=== PATIENT | male | born 1995 | race Caucasian/White ===

== ENCOUNTER 2021-11-08 17:29 | Emergency (ER) | payer OTHER ==
--- NOTE | 2021-11-08 17:43 | ED Physician Documentation ---
PD HPI CHEST PAIN - Stated complaint Stated Complaint: CHEST PX - History obtained from History obtained from: Patient - History of Present Illness Timing - onset: How many days ago (3-4) Timing - onset during: Light activity Timing - duration: Days (3-4) Timing - details: Gradual onset, Still present Quality: Aching, Dull, Pain Location: Substernal, Left chest Radiation: No: Neck, Back Improved by: No: Rest Worsened by: Inspiration, Position (noted when lying down more but not particularly left versus right side. Mildly worse leaning forward.). No: Eating Associated symptoms: Feeling faint / dizzy, Palpitations (he felt like heart was pounding fast today the past few hours.). No: Shortness of air, Nausea Similar symptoms before: Has not had sx before Recently seen: Clinic (onset and worse 3-4 days ago and seen at [facility] 2 days ago, with ECG done and patient states Dx of pericarditis. Rx with Colchicine bid and Indomethacin 2 tabs tid. has had that for this is 2nd day. Feeling of fast heart rate and increased pain lower chest today.), Other (had 2nd Moderna vaccine a month ago without problems at that time.) Review of Systems Constitutional: denies: Fever, Chills Nose: denies: Rhinorrhea / runny nose, Congestion Throat: denies: Sore throat Cardiac: reports: Chest pain / pressure Respiratory: reports: Dyspnea. denies: Cough Neurologic: reports: Near syncope. denies: Generalized weakness, Syncope PD PAST MEDICAL HISTORY - Past Medical History Cardiovascular: None Respiratory: None Neuro: None Endocrine/Autoimmune: None - Past Surgical History Past Surgical History: No - Present Medications Home Medications: Ambulatory Orders Medication Instructions Recorded Confirmed Calcium Carbonate [Tums (Calcium 200 mg PO Q6HR #30 tablet 11/08/21 Carbonate 500mg)] Colchicine [Colcrys] 0.6 mg ORAL BID 11/08/21 11/08/21 Indomethacin [Indocin] 50 mg ORAL TID 11/08/21 11/08/21 Metoprolol Succinate [Toprol Xl] 25 mg PO DAILY #30 tablet 11/08/21 Omeprazole 40 mg PO DAILY #30 cap 11/08/21 - Allergies Allergies/Adverse Reactions: Allergies Allergy/AdvReac Type Severity Reaction Status Date / Time No Known Drug Allergies Allergy Verified 11/08/21 17:36 - Living Situation Living Situation: reports: With spouse/s.o. Living Arrangement: reports: At home - Social History Does the pt smoke?: No Does the pt drink ETOH?: No Does the pt have substance abuse?: No - Family History Family history: denies: Aortic aneursym, Aortic dissection PD ED PE NORMAL - Vitals Vital signs reviewed: Yes (tachycardic and hypertensive. ) - General General: Alert and oriented X 3, No acute distress, Well developed/nourished - HEENT HEENT: Pharynx benign - Neck Neck: Supple, no meningeal sign, No adenopathy - Cardiac Cardiac: No murmur, No rub. No: RRR (regular but tachycardic.) - Respiratory Respiratory: No respiratory distress, Clear bilaterally - Abdomen Abdomen: Soft, Non tender - Back Back: No CVA TTP - Derm Derm: Normal color, Warm and dry, No rash - Neuro Neuro: Alert and oriented X 3, No motor deficit, Normal speech Results - Vitals Vitals: Vital Signs - 24 hr 11/08/21 11/08/21 17:37 19:05 Temperature 36.5 C 36.4 C L Heart Rate 122 H 94 Respiratory 20 15 Rate Blood Pressure 172/94 H 134/96 H O2 Saturation 100 98 Oxygen O2 Source Room air - EKG (time done) 17:37 Rate: Rate (enter#) (111) Rhythm: Sinus tachycardia [place]: Normal Intervals: Normal [place] QRS: Normal Ischemia: Normal ST segments, Other (borderline repolarization). No: ST elevation c/w ischemia, ST depression - Labs Labs: Laboratory Tests 11/08/21 11/08/21 11/08/21 18:32 18:32 18:32 WBC 9.9 RBC 6.11 H Hgb 17.3 Hct 50.9 MCV 83.3 MCH 28.3 MCHC 34.0 RDW 11.9 L Plt Count 244 MPV 9.8 Neut # (Auto) 7.5 H Lymph # (Auto) 1.8 [place] # (Auto) 0.5 Eos # (Auto) 0.1 Baso # (Auto) 0.1 Absolute Nucleated RBC 0.00 Nucleated RBC % 0.0 Sodium 137 Potassium 3.7 Chloride 100 L Carbon Dioxide 26 Anion Gap 11.0 BUN 13 Creatinine 1.0 Estimated GFR (MDRD) 93 Glucose 109 H Calcium 9.5 Total Bilirubin 0.6 AST 31 ALT 65 H Alkaline Phosphatase 83 Troponin I High Sens 2.4 C-Reactive Protein 1.1 H B-Natriuretic Peptide Total Protein 8.2 Albumin 5.3 Globulin 2.9 Albumin/Globulin Ratio 1.8 Lipase 25 11/08/21 18:32 WBC RBC Hgb Hct MCV MCH MCHC RDW Plt Count MPV Neut # (Auto) Lymph # (Auto) [place] # (Auto) Eos # (Auto) Baso # (Auto) Absolute Nucleated RBC Nucleated RBC % Sodium Potassium Chloride Carbon Dioxide Anion Gap BUN Creatinine Estimated GFR (MDRD) Glucose Calcium Total Bilirubin AST ALT Alkaline Phosphatase Troponin I High Sens C-Reactive Protein B-Natriuretic Peptide 14 Total Protein Albumin Globulin Albumin/Globulin Ratio Lipase - Rads (name of study) chest xray Radiology: Prelim report reviewed (no acute process), See rad report PD MEDICAL DECISION MAKING - ED course Complexity details: reviewed results (bedside U/S by me showed normal heart s ize, brisk symmetric contractions, and no pericardial effusion. ), considered differential (can check CXR and labs. If presume pericarditis, then can add Metoprolol for symptoms (HR and BP), continue Indocin and colchicine, and could add a dose of Decadron. COncern for GI upset with meds, and he did get some better with GI cocktail, so add Famotidine. Check trop to ensure not carditis.), d/w patient Departure - Departure Disposition: 01 Home, Self Care Clinical Impression: Pericarditis Condition: Fair Instructions: ED Chest Pain Pericarditis Prescriptions: Calcium Carbonate [Tums (Calcium Carbonate 500mg)] 200 mg PO Q6HR #30 tablet Omeprazole 40 mg PO DAILY #30 cap Metoprolol Succinate [Toprol Xl] 25 mg PO DAILY #30 tablet Comments: Thank you for allowing us to care for you today at [facility]. . All the test performed in the emergency department today were very reassuring. I like you to continue to take your previously prescribed indomethacin and colchicine. I will also be discharging of some medication to take for pain control and indigestion. Please continue to follow-up carefully with your outpatient team. If it anytime you develop any new or worsening symptoms please return to the emergency department immediately for reevaluation. Discharge Date/Time: 11/08/21 20:10
[2021-11-08] MEDS ORDERED: DEXAMETHASONE 10 MG/ML VIAL IVP STA (18:22)
[2021-11-08] MEDS ORDERED: METOPROLOL 5 MG/5 ML VIAL IVP STA (18:22)
[2021-11-08] MEDS ORDERED: SODIUM CHLORIDE 0.9% 1,000 ML IV STA (18:22)
[2021-11-08] MEDS ORDERED: MAG HYDROX/AL HYDROX/SIMETH 30 ML UDC PO STA (18:24)
[2021-11-08] MEDS ORDERED: LIDOCAINE VISCOUS 2% 15 ML UDC MM STA (18:24)
[2021-11-08 18:39] LABS: BASOPHILS # (AUTO) 0.1 10^3/uL (0.0-0.1); BASOPHILS % (AUTO) 0.5 %; EOSINOPHILS # (AUTO) 0.1 10^3/uL (0.0-0.7); EOSINOPHILS % (AUTO) 0.8 %; HCT - HEMATOCRIT 50.9 % (42.0-52.0); HGB - HEMOGLOBIN 17.3 g/dL (14.0-18.0); LYMPHOCYTES # (AUTO) 1.8 10^3/uL (1.5-3.5); LYMPHOCYTES % (AUTO) 17.8 %; MEAN CORPUSCULAR HEMOGLOBIN 28.3 pg (27.0-31.0); MEAN CORPUSCULAR VOLUME 83.3 fL (80.0-94.0); MEAN PLATELET VOLUME 9.8 fL (7.4-11.4); MONOCYTES # (AUTO) 0.5 10^3/uL (0.0-1.0); MONOCYTES % (AUTO) 4.7 %; NEUTROPHILS # (AUTO) 7.5 10^3/uL (1.5-6.6); NEUTROPHILS % (AUTO) 75.9 %; PLT - PLATELET COUNT 244 10^3/uL (130-450); RED BLOOD COUNT 6.11 10^6/uL (4.70-6.10); RED CELL DISTRIBUTION WIDTH 11.9 % (12.0-15.0); WHITE BLOOD COUNT 9.9 x10^3/uL (4.8-10.8)
--- NOTE | 2021-11-08 18:51 | XRAY Report ---
PROCEDURE: Chest 1 View X-Ray INDICATIONS: Chest Pain TECHNIQUE: One view of the chest was acquired. COMPARISON: None FINDINGS: Surgical changes and devices: None. Lungs and pleura: No pleural effusions or pneumothorax. Lungs are clear. Mediastinum: Mediastinal contours appear normal. Heart size is normal. Bones and chest wall: No suspicious bony lesions. Overlying soft tissues appear unremarkable. IMPRESSION: No acute cardiopulmonary disease process. Reviewed by: Margoth Harrell MD, PhD on 11/08/2021 6:49 PM PST Approved by: Margoth Harrell MD, PhD on 11/08/2021 6:49 PM PST Station ID: [id number]
[2021-11-08 18:59] LABS: ALBUMIN 5.3 g/dL (3.2-5.5); ALBUMIN/GLOBULIN RATIO 1.8 (1.0-2.2); BILIRUBIN,TOTAL 0.6 mg/dL (0.2-1.0); CALCIUM 9.5 mg/dL (8.5-10.3); CRP - C-REACTIVE PROTEIN 1.1 mg/dL (0-1.0); POTASSIUM 3.7 mmol/L (3.5-5.0); TOTAL PROTEIN 8.2 g/dL (6.7-8.2)
--- NOTE | 2021-11-08 19:15 | ED Physician Documentation ---
ED Addendum - Addendum Addendum: Patient received as signout from off going physician, please see their documentation for further detail. Patient evaluated independently at bedside. Reported feeling significantly better. All labs and imaging were reviewed directly with the patient including his negative troponin, mild elevation in C- reactive protein, is otherwise reassuring labs, the improvement in his vital signs and his nonacute chest x-ray. Had a long and detailed discussion with the patient about the nature of pericarditis as well as the natural course of this illness. Instructed patient in use of the medications that I will discharge him with including the low-dose beta-samaria, omeprazole to be taken daily, and calcium carbonate antiacids to be used as needed. He verbalized understanding of these things. Additionally I went over return precautions with him in detail including return to the emergency department instructions for any worsening pain, fever, shortness of breath or other concerning symptoms. At this time will discharge for follow-up with primary care. Otherwise clear return pre cautions and follow-up instructions given prior to discharge. 11/08/21 20:06
[2021-11-08 20:25] VITALS: BP 134/96
== END 2021-11-08 20:10 | disposition home or self-care (01) ==
LOC: ED 17:29
DX: I31.9 Disease of pericardium, unspecified (principal)
CPT/HCPCS: 36415; 71045; 80053; 83690; 83880; 84484; 85025; 86140; 93005; 96374; 96375; 99284; A9270

== ENCOUNTER 2021-12-06 15:50 | Emergency (ER) | payer OTHER ==
--- NOTE | 2021-12-06 16:19 | ED Physician Documentation ---
PD HPI CHEST PAIN - Stated complaint Stated Complaint: CHEST TIGHTNESS - Chief complaint Chief Complaint: Cardiac - History obtained from History obtained from: Patient - Additional information Additional information: 25yo with hx of pericarditis 1 month ago. Chest discomfort since last night,12/01, central, nonradiating. "Tightness." Better with rest, worse with movement. No sick contacts. On colchicine and metoprolol. Fhx mom with SVT and sister too. Started at rest last night, does feel like prior episode of pericarditis. Review of Systems Ten Systems: 10 systems reviewed and negative PD PAST MEDICAL HISTORY - Past Medical History Past Medical History: Yes Cardiovascular: Other Respiratory: Asthma Neuro: None Endocrine/Autoimmune: None GI: None : None HEENT: None Psych: Anxiety Musculoskeletal: None Derm: None - Past Surgical History Past Surgical History: No - Present Medications Home Medications: Ambulatory Orders Medication Instructions Recorded Confirmed Calcium Carbonate [Tums (Calcium 200 mg PO Q6HR #30 tablet 11/08/21 12/06/21 Carbonate 500mg)] Colchicine [Colcrys] 0.6 mg ORAL BID 11/08/21 12/06/21 Indomethacin [Indocin] 50 mg ORAL TID 11/08/21 12/06/21 Metoprolol Succinate [Toprol Xl] 25 mg PO DAILY #30 tablet 11/08/21 12/06/21 - Allergies Allergies/Adverse Reactions: Allergies Allergy/AdvReac Type Severity Reaction Status Date / Time No Known Drug Allergies Allergy Verified 12/06/21 16:02 - Social History Does the pt smoke?: No Smoking Status: Never smoker Does the pt drink ETOH?: No Does the pt have substance abuse?: No - Immunizations Immunizations are current?: Yes PD ED PE NORMAL - Vitals Vital signs reviewed: Yes - General General: Alert and oriented X 3, No acute distress - HEENT HEENT: PERRL, EOMI - Neck Neck: Supple, no meningeal sign, No bony TTP - Cardiac Cardiac: Other (Tachycardic but regular without murmur, bedside ultrasound demonstrates visibly good EF with no pericardial effusion.) - Respiratory Respiratory: No respiratory distress, Clear bilaterally - Abdomen Abdomen: Non tender - Derm Derm: Normal color, Warm and dry - Extremities Extremities: No edema, No calf tenderness / cord - Neuro Neuro: Alert and oriented X 3, Normal speech Results - Vitals Vitals: Vital Signs - 24 hr 01/15/22 01/15/22 01/15/22 16:02 16:17 17:20 Temperature 36.8 C Heart Rate 120 H 125 H 105 H Respiratory 18 22 18 Rate Blood Pressure 165/98 H 142/93 H 143/89 H O2 Saturation 99 98 96 Oxygen O2 Source Room air - EKG (time done) 1556 Rate: Rate (enter#) (120) Rhythm: Sinus tachycardia [place]: Normal Intervals: Normal [place], Prolonged QT QRS: Normal Ischemia: Non specific changes Compare to prior EKG: Changed from prior EKG (increased TWI inferior, O/W not much change.) Computer interpretation: Agree with computer - Labs Labs: Laboratory Tests 12/06/21 12/06/21 12/06/21 16:31 16:31 16:31 WBC 8.3 RBC 5.72 Hgb 16.2 Hct 47.4 MCV 82.9 MCH 28.3 MCHC 34.2 RDW 11.9 L Plt Count 217 MPV 9.7 Neut # (Auto) 6.0 Lymph # (Auto) 1.5 [place] # (Auto) 0.5 Eos # (Auto) 0.3 Baso # (Auto) 0.0 Absolute Nucleated RBC 0.00 Nucleated RBC % 0.0 D-Dimer 246.5 Sodium 138 Potassium 4.0 Chloride 100 L Carbon Dioxide 28 Anion Gap 10.0 BUN 19 Creatinine 1.0 Estimated GFR (MDRD) 93 Glucose 122 H Calcium 9.5 Magnesium 2.4 Troponin I High Sens 12/06/21 16:31 WBC RBC Hgb Hct MCV MCH MCHC RDW Plt Count MPV Neut # (Auto) Lymph # (Auto) [place] # (Auto) Eos # (Auto) Baso # (Auto) Absolute Nucleated RBC Nucleated RBC % D-Dimer Sodium Potassium Chloride Carbon Dioxide Anion Gap BUN Creatinine Estimated GFR (MDRD) Glucose Calcium Magnesium Troponin I High Sens 3.3 PD MEDICAL DECISION MAKING - ED course ED course: He is tachycardic so PE is considered even though his symptoms are not really consistent with that, but D-dimer was negative. Review of prior visit shows that he was tachycardic on prior visit as well. He was worried about myocarditis but his troponin is negative and bedside very limited echocardiogram was showing good EF visibly and no evidence of pericardial effusion. Departure - Departure Disposition: 01 Home, Self Care Clinical Impression: Chest pain Qualifiers: Chest pain type: chest pain on breathing Qualified Code(s): R07.1 - Chest pain on breathing Condition: Good Record reviewed to determine appropriate education?: Yes Instructions: ED Chest Pain Atypical Unkn Cause Comments: No evidence of serious disease including myocarditis, pulmonary embolism or other serious cause of chest pain. Could be persistent pain from pericarditis versus your physician for further evaluation and treatment. Return for new or worsening symptoms. Discharge Date/Time: 12/06/21 17:36
[2021-12-06 16:39] LABS: BASOPHILS % (AUTO) 0.5 %; EOSINOPHILS # (AUTO) 0.3 10^3/uL (0.0-0.7); EOSINOPHILS % (AUTO) 3.1 %; HCT - HEMATOCRIT 47.4 % (42.0-52.0); HGB - HEMOGLOBIN 16.2 g/dL (14.0-18.0); LYMPHOCYTES # (AUTO) 1.5 10^3/uL (1.5-3.5); LYMPHOCYTES % (AUTO) 18.3 %; MEAN CORPUSCULAR HEMOGLOBIN 28.3 pg (27.0-31.0); MEAN CORPUSCULAR HGB CONC 34.2 g/dL (32.0-36.0); MEAN CORPUSCULAR VOLUME 82.9 fL (80.0-94.0); MEAN PLATELET VOLUME 9.7 fL (7.4-11.4); MONOCYTES # (AUTO) 0.5 10^3/uL (0.0-1.0); MONOCYTES % (AUTO) 5.8 %; NEUTROPHILS % (AUTO) 72.1 %; PLT - PLATELET COUNT 217 10^3/uL (130-450); RED BLOOD COUNT 5.72 10^6/uL (4.70-6.10); RED CELL DISTRIBUTION WIDTH 11.9 % (12.0-15.0); WHITE BLOOD COUNT 8.3 x10^3/uL (4.8-10.8)
[2021-12-06 16:48] LABS: CALCIUM 9.5 mg/dL (8.5-10.3); MAGNESIUM 2.4 mg/dL (1.7-2.8)
[2021-12-06 17:21] VITALS: BP 143/89
--- NOTE | 2021-12-06 17:26 | XRAY Report ---
PROCEDURE: Chest 1 View X-Ray INDICATIONS: chest pain TECHNIQUE: One view of the chest was acquired. COMPARISON: 11/08/2021 FINDINGS: Surgical changes and devices: None. Lungs and pleura: No pleural effusions or pneumothorax. Lungs are clear. Mediastinum: Mediastinal contours appear normal. Heart size is normal. Bones and chest wall: No suspicious bony lesions. Overlying soft tissues appear unremarkable. IMPRESSION: Normal portable chest. Reviewed by: Shahid Beyer MD on 12/06/2021 4:25 PM [facility] Approved by: Shahid Beyer MD on 12/06/2021 4:25 PM [facility] Station ID: [id number]
== END 2021-12-06 17:36 | disposition home or self-care (01) ==
LOC: ED 15:50
DX: R07.1 Chest pain on breathing (principal); R00.0 Tachycardia, unspecified; I45.81 Long QT syndrome; Z86.79 Personal history of other diseases of the circulatory system; Z82.49 Family history of ischemic heart disease and other diseases of the circulatory system
CPT/HCPCS: 36415; 80048; 83735; 84484; 85025; 85379; 93005; 99281; 99284

== ENCOUNTER 2022-05-14 08:00 | Outpatient (CLI) | payer OTHER | END 2022-05-14 23:59 | disposition home or self-care (01) | LOC: LAB 08:00 | PROVIDERS: ATTEND Registered Nurse | DX: J02.9 Acute pharyngitis, unspecified (principal) | CPT/HCPCS: 87070 ==

== ENCOUNTER 2022-07-24 14:04 | Emergency (ER) | payer OTHER ==
--- OUTSIDE RECORDS SUMMARY | 2022-07-24 14:23 | EXTERNAL MEDICAL SUMMARY RPT | Continuity of Care Document ---
:1995 Author Organization [facility] Address [address] [place] [address] Phone Allergies No information. Encounters No information. Functional Status No information. Immunizations No information. Medications date description facility +0000 amoxicillin [facility] [place] [id number] prednisone [facility] [place] [id number]+0000 amoxicillin [facility] [place] [id number]+0000 prednisone [facility] [place] [id number]+0000 metoprolol tartrate [facility] [place] [id number]+0000 metoprolol tartrate [facility] [place] Problems No information. Procedures date description facility +0000 Visit Code Hold [facility] [place] [id number]+0000 POC STREP TEST [facility] [place] Results/Labs No information. Social History No information. Vital Signs date measurement value units +0000 BMI BMI 24.36 kg/m2 [id number]+0000 BP_diastolic BP_diastolic 82 mm[H g] [id number]+0000 BP_systolic BP_systolic 140 mm[Hg] 49931564412235+0000 heart_rate heart_rate 122 /min [id number]+0000 height_metric height_metric 170.18 cm [id number]+0000 height_standard height_standard 67 in [id number]+0000 respiration_rate respiration_rate 15 /min [id number]+0000 temperature_metric temperature_metric 36.78 C [id number]+0000 temperature_standard temperature_standard 9 8.2 F [id number]+0000 weight_metric weight_metric 70.31 kg [id number]+0000 weight_standard weight_standard 155 lb
[2022-07-24 14:58] LABS: BASOPHILS % (AUTO) 0.6 %; EOSINOPHILS # (AUTO) 0.1 10^3/uL (0.0-0.7); EOSINOPHILS % (AUTO) 0.8 %; HCT - HEMATOCRIT 48.6 % (42.0-52.0); HGB - HEMOGLOBIN 16.3 g/dL (14.0-18.0); LYMPHOCYTES # (AUTO) 1.8 10^3/uL (1.5-3.5); LYMPHOCYTES % (AUTO) 24.8 %; MEAN CORPUSCULAR HEMOGLOBIN 28.1 pg (27.0-31.0); MEAN CORPUSCULAR HGB CONC 33.5 g/dL (32.0-36.0); MEAN CORPUSCULAR VOLUME 83.6 fL (80.0-94.0); MEAN PLATELET VOLUME 10.1 fL (7.4-11.4); MONOCYTES # (AUTO) 0.4 10^3/uL (0.0-1.0); MONOCYTES % (AUTO) 6.1 %; NEUTROPHILS # (AUTO) 4.9 10^3/uL (1.5-6.6); NEUTROPHILS % (AUTO) 67.4 %; PLT - PLATELET COUNT 226 10^3/uL (130-450); RED BLOOD COUNT 5.81 10^6/uL (4.70-6.10); RED CELL DISTRIBUTION WIDTH 12.4 % (12.0-15.0); WHITE BLOOD COUNT 7.2 x10^3/uL (4.8-10.8)
[2022-07-24 15:11] LABS: ALBUMIN/GLOBULIN RATIO 1.8 (1.0-2.2); BILIRUBIN,TOTAL 0.9 mg/dL (0.2-1.0); CALCIUM 9.3 mg/dL (8.5-10.3); CREATININE 1.1 mg/dL (0.6-1.2); POTASSIUM 3.5 mmol/L (3.5-5.0); TOTAL PROTEIN 7.8 g/dL (6.7-8.2)
--- NOTE | 2022-07-24 16:04 | CT Report ---
PROCEDURE: ANGIO CHEST W/WO INDICATIONS: chest pain, dyspnea, tachycardia CONTRAST: IV CONTRAST: Optiray 320 ml: 80 PO CONTRAST: *NO PO CONTRAST TECHNIQUE: After the administration of intravenous contrast, 2 mm axial images were acquired from the pulmonary apices to the posterior costophrenic angles during the arterial phase. In addition, 1 mm lung kernel and 5 mm soft tissue kernel reconstructions were performed. 3-dimensional coronal oblique maximum int ensity projection (MIP) reformats, 8 mm axial MIP, and 5 mm coronal and sagittal MPR reformats were t hen performed through the thorax. For radiation dose reduction, the following was used: automated exp osure control, adjustment of mA and/or kV according to patient size. COMPARISON: None. FINDINGS: Image quality: Diagnostic. Pulmonary arteries: Pulmonary arteries are normal in size, and demonstrate no intraluminal filling d efects to suggest central pulmonary embolism. Lungs and pleura: Bibasilar atelectasis. Lungs are otherwise clear. No acute airspace disease. No se ptal thickening or nodularity. No pleural effusions or pneumothorax. Central and peripheral airways are patent. Mediastinum: Heart size is normal, without pericardial effusion. No mediastinal or hilar adenopathy . Thoracic aorta is normal in caliber and enhancement. Esophagus is normal in caliber, without hiat al hernia. Bones and chest wall: No suspicious bony lesions. Ribs and thoracic spine appear intact throughout. No axillary or supraclavicular adenopathy. The thyroid is normal in size and there are no incident al findings. Abdomen: Visualized upper abdominal solid organs appear normal in the early arterial phase of enhanc ement. IMPRESSION: No acute pulmonary emboli identified. No acute cardiopulmonary abnormality seen. No focal airspace di sease. CLINICAL RECOMMENDATION STATEMENTS: In patients <35 years with an ITN detected on CT, MRI, or extrathyroidal ultrasound, the Committee re commends further evaluation with dedicated thyroid ultrasound if the nodule is "e1 cm and has no susp icious imaging features, and if the patient has normal life expectancy. In patients "e35 years with an ITN detected on CT, MRI, or extrathyroidal ultrasound, the Committee r ecommends further evaluation with dedicated thyroid ultrasound if the nodule is "e1.5 cm and has no s uspicious imaging features, and if the patient has normal life expectancy. (ACR, 2014) Reviewed by: Jose Cleveland MD on 07/24/2022 4:03 PM PDT Approved by: Jose Cleveland MD on 07/24/2022 4:03 PM PDT Station ID: [id number]
--- NOTE | 2022-07-24 16:07 | ED Physician Documentation ---
History of Present Illness - Stated complaint Stated Complaint: CHEST PAIN - Chief complaint Chief Complaint: Cardiac - History obtained from History obtained from: Patient - History of Present Illness Pain level max: 4 Pain level now: 0 - Additonal information Additional information: Patient is a 26-year-old male who presents to the emergency department stating that he has had intermittent chest pain and palpitations for several weeks. Worsening over the past few days. He states that if he is exerting himself heavily, he has an elevated heart rate into the 180s. He states occasionally his heart rate will go higher with minimal exertion as well. He states he had pericarditis about 9 months ago. Currently asymptomatic Patient states occasionally he feels like he has dyspnea as well. He states occasionally feels sharp pain when taking a deep breath. No recent travel. No leg swelling. No history of DVT Review of Systems Constitutional: denies: Fever, Chills Ears: denies: Ear pain Nose: denies: Rhinorrhea / runny nose, Congestion : denies: Dysuria Skin: denies: Rash Musculoskeletal: denies: Neck pain, Back pain Neurologic: denies: Headache PD PAST MEDICAL HISTORY - Past Medical History Cardiovascular: Other Respiratory: Asthma Neuro: None Endocrine/Autoimmune: None GI: None : None HEENT: None Psych: Anxiety Musculoskeletal: None Derm: None - Past Surgical History Past Surgical History: No - Present Medications Home Medications: Ambulatory Orders Medication Instructions Recorded Confirmed Calcium Carbonate [Tums (Calcium 200 mg PO Q6HR #30 tablet 11/08/21 07/24/22 Carbonate 500mg)] Metoprolol Succinate [Toprol Xl] 25 mg PO DAILY #30 tablet 11/08/21 07/24/22 - Allergies Allergies/Adverse Reactions: Allergies Allergy/AdvReac Type Severity Reaction Status Date / Time No Known Drug Allergies Allergy Verified 07/24/22 14:17 - Social History Does the pt smoke?: No Smoking Status: Never smoker Does the pt drink ETOH?: No Does the pt have substance abuse?: No - Immunizations Immunizations are current?: Yes PD ED PE NORMAL - Vitals Vital signs reviewed: Yes - General General: Alert and oriented X 3, No acute distress - HEENT HEENT: Moist mucous membranes - Neck Neck: Supple, no meningeal sign - Cardiac Cardiac: RRR, No murmur, No gallop, No rub, Strong equal pulses - Respiratory Respiratory: No respiratory distress, Clear bilaterally - Abdomen Abdomen: Soft, Non tender, Non distended - Derm Derm: Warm and dry - Extremities Extremities: No edema, No calf tenderness / cord - Neuro Neuro: Alert and oriented X 3, 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4 Plt Count 226 MPV 10.1 Neut # (Auto) 4.9 Lymph # (Auto) 1.8 [place] # (Auto) 0.4 Eos # (Auto) 0.1 Baso # (Auto) 0.0 Absolute Nucleated RBC 0.00 Nucleated RBC % 0.0 Sodium 135 Potassium 3.5 Chloride 100 L Carbon Dioxide 26 Anion Gap 9.0 BUN 12 Creatinine 1.1 Estimated GFR (MDRD) 82 L Glucose 96 Calcium 9.3 Total Bilirubin 0.9 AST 25 ALT 39 Alkaline Phosphatase 70 Troponin I High Sens < 2.3 L Total Protein 7.8 Albumin 5.0 Globulin 2.8 Albumin/Globulin Ratio 1.8 Lipase 31 - Rads (name of study) CT pulmonary angiogram Radiology: Final report received, EMP read contemporaneously, See rad report (No acute abnormality) PD MEDICAL DECISION MAKING - ED course Complexity details: reviewed results, re-evaluated patient, considered differential, d/w patient ED course: 26-year-old male with chest pain and palpitations for the past several weeks. Unclear etiology. No significant abnormalities here. States had pericarditis about 9 months ago. No evidence of pericardial effusion on CT scan. No evidence of PE. No significant lab abnormalities. We will have him follow-up with his doctor for further care. No arrhythmias on telemetry. Patient counseled regarding signs and symptoms for which I believe and urgent re- evaluation would be necessary. Patient with good understanding of and agreement to plan and is comfortable going home at this time This document was made in part using voice recognition software. While efforts are made to proofread this document, sound alike and grammatical errors may occur. Departure - Departure Disposition: 01 Home, Self Care Clinical Impression: Palpitations Chest pain Qualifiers: Chest pain type: unspecified Qualified Code(s): R07.9 - Chest pain, unspecified Condition: Good Instructions: ED Chest Pain Atypical Unkn Cause, ED Palpitations Follow-Up: your,doctor in 1 week [Other] Comments: Your testing does not show any acute abnormalities today. Your laboratory testing, EKG and CT angiogram of the chest do not show any acute abnormalities. 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 Please return if you worsen. Discharge Date/Time: 07/24/22 16:28
[2022-07-24 16:28] VITALS: BP 142/90
== END 2022-07-24 16:28 | disposition home or self-care (01) ==
LOC: ED 14:04
DX: R07.9 Chest pain, unspecified (principal); R00.2 Palpitations
CPT/HCPCS: 36415; 71275; 80053; 83690; 84484; 85025; 93005; 99284; Q9967

== ENCOUNTER 2022-09-30 11:13 | Emergency (ER) | payer OTHER ==
[2022-09-30 11:49] LABS: BASOPHILS % (AUTO) 0.3 %; EOSINOPHILS # (AUTO) 0.1 10^3/uL (0.0-0.7); EOSINOPHILS % (AUTO) 0.9 %; HCT - HEMATOCRIT 51.3 % (42.0-52.0); LYMPHOCYTES # (AUTO) 1.8 10^3/uL (1.5-3.5); LYMPHOCYTES % (AUTO) 18.8 %; MEAN CORPUSCULAR HEMOGLOBIN 27.8 pg (27.0-31.0); MEAN CORPUSCULAR HGB CONC 33.1 g/dL (32.0-36.0); MEAN CORPUSCULAR VOLUME 83.8 fL (80.0-94.0); MEAN PLATELET VOLUME 9.7 fL (7.4-11.4); MONOCYTES # (AUTO) 0.6 10^3/uL (0.0-1.0); MONOCYTES % (AUTO) 5.8 %; NEUTROPHILS # (AUTO) 7.2 10^3/uL (1.5-6.6); NEUTROPHILS % (AUTO) 73.8 %; PLT - PLATELET COUNT 241 10^3/uL (130-450); RED BLOOD COUNT 6.12 10^6/uL (4.70-6.10); RED CELL DISTRIBUTION WIDTH 12.4 % (12.0-15.0); WHITE BLOOD COUNT 9.7 x10^3/uL (4.8-10.8)
[2022-09-30 12:08] LABS: ALBUMIN/GLOBULIN RATIO 1.7 (1.0-2.2); BILIRUBIN,TOTAL 1.1 mg/dL (0.2-1.0); CALCIUM 9.5 mg/dL (8.5-10.3); POTASSIUM 3.7 mmol/L (3.5-5.0)
--- NOTE | 2022-09-30 14:20 | ED Physician Documentation ---
History of Present Illness - Stated complaint Stated Complaint: LIGHTHEADED - Chief complaint Chief Complaint: Neuro - Additonal information Additional information: 26-year-old male presents emergency department for evaluation of feeling lig htheaded and dizzy. He states that for the last 3 weeks he has been in a fog and just feels out of it however this morning he felt like he was going to pass out. He denies a sensation of tunnel vision. No chest pain or shortness of air. He has had no recent falls or trauma. No cough cold or fevers. He does have a history of pericarditis that was diagnosed last year. He has been weaning off of Metroprolol. He is a daily vapor/tobacco user. Rare alcohol use. Denies cannabis. No recent travel, surgery or immobilizations. No unilateral leg swelling. No history of DVT or cancer. Review of Systems Constitutional: denies: Fever, Chills Eyes: reports: Reviewed and negative Throat: reports: Reviewed and negative Cardiac: denies: Chest pain / pressure, Palpitations, Pedal edema Respiratory: denies: Dyspnea, Cough GI: reports: Reviewed and negative Skin: reports: Reviewed and negative Musculoskeletal: reports: Reviewed and negative Neurologic: reports: Near syncope. denies: Syncope, Seizure, Confused, Headache, Head injury PD PAST MEDICAL HISTORY - Past Medical History Cardiovascular: Other Respiratory: Asthma Neuro: None Endocrine/Autoimmune: None GI: None : None HEENT: None Psych: Anxiety Musculoskeletal: None Derm: None - Past Surgical History Past Surgical History: No - Present Medications Home Medications: Ambulatory Orders Medication Instructions Recorded Confirmed Metoprolol Succinate [Toprol Xl] 25 mg PO DAILY #30 tablet 11/08/21 09/30/22 - Allergies Allergies/Adverse Reactions: Allergies Allergy/AdvReac Type Severity Reaction Status Date / Time No Known Drug Allergies Allergy Verified 09/30/22 11:33 - Social History Does the pt smoke?: No Smoking Status: Never smoker Does the pt drink ETOH?: No Does the pt have substance abuse?: No - Immunizations Immunizations are current?: Yes PD ED PE NORMAL - General General: Alert and oriented X 3, No acute distress - HEENT HEENT: PERRL - Neck Neck: Supple, no meningeal sign, No adenopathy - Cardiac Cardiac: RRR, No murmur, No gallop, Strong equal pulses - Respiratory Respiratory: No respiratory distress, Clear bilaterally - Abdomen Abdomen: Normal bowel sounds, Soft, Non tender - Derm Derm: Normal color, Warm and dry - Extremities Extremities: No deformity - Neuro Neuro: Alert and oriented X 3, 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 officer 2-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 No: Prolonged QT QRS: Normal Ischemia: Non specific changes Compare to prior EKG: Old EKG unavailable Computer interpretation: Agree with computer - Labs Labs: Laboratory Tests 09/30/22 09/30/22 09/30/22 11:44 11:44 11:44 WBC 9.7 RBC 6.12 H Hgb 17.0 Hct 51.3 MCV 83.8 MCH 27.8 MCHC 33.1 RDW 12.4 Plt Count 241 MPV 9.7 Neut # (Auto) 7.2 H Lymph # (Auto) 1.8 Sullivan # (Auto) 0.6 Eos # (Auto) 0.1 Baso # (Auto) 0.0 Absolute Nucleated RBC 0.00 Nucleated RBC % 0.0 Sodium 137 Potassium 3.7 Chloride 99 L Carbon Dioxide 27 Anion Gap 11.0 BUN 12 Creatinine 1.0 Estimated GFR (MDRD) 92 Glucose 101 H POC Whole Bld Glucose Calcium 9.5 Total Bilirubin 1.1 H AST 31 ALT 49 Alkaline Phosphatase 71 Troponin I High Sens < 2.3 L Total Protein 8.0 Albumin 5.0 Globulin 3.0 Albumin/Globulin Ratio 1.7 Lipase 29 09/30/22 13:59 WBC RBC Hgb Hct MCV MCH MCHC RDW Plt Count MPV Neut # (Auto) Lymph # (Auto) Sullivan # (Auto) Eos # (Auto) Baso # (Auto) Absolute Nucleated RBC Nucleated RBC % Sodium Potassium Chloride Carbon Dioxide Anion Gap BUN Creatinine Estimated GFR (MDRD) Glucose POC Whole Bld Glucose 106 H Calcium Total Bilirubin AST ALT Alkaline Phosphatase Troponin I High Sens Total Protein Albumin Globulin Albumin/Globulin Ratio Lipase PD MEDICAL DECISION MAKING - ED course Complexity details: reviewed results, considered differential, d/w patient, d/w family ED course: 26-year-old male presents emergency department for evaluation of near syncope that occurred this morning. He does have a history of pericarditis last year and has been weaning off of the Metroprolol long-acting. Currently taking 12 and half milligrams daily. On presentation he is alert well-appearing. No focal deficits. He does have a very mild tachycardia noted with a heart rate of 106 but it is sinus without other arrhythmia. EKG is sinus rhythm. No worrisome electrolyte conduction abnormalities are noted. CBC, electrolytes and troponin were all essentially negative. His orthostatics were also unremarkable. Cannot PERC negative due to mildly elevated heart rate but by Wells criteria very low suspicion for PE The patient endorses to me that he has a history of PTSD and anxiety and is wondering if this could have been contributing to the symptoms. I discussed that anxiety is a diagnosis of exclusion but reassuringly there does not appear to be any worrisome findings on his labs or EKG imaging. He is stable for discharge home. 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 Return precautions were discussed for dyspnea, any Fainting episodes, severe chest pain Departure - Departure Disposition: 01 Home, Self Care Clinical Impression: Near syncope Condition: Stable Record reviewed to determine appropriate education?: Yes Instructions: ED Near Syncope Unkn Comments: Sedrick green are seen today in the emergency department because for the last few weeks have been foggy and out of it but this morning you felt like you are about to faint. This is called near syncope. Here in the emergency department your CBC, electrolytes and troponin were all essentially normal. Your EKG did not show any worrisome findings and there were no abnormal electrical conduction abnormalities. You did wonder if anxiety could be contributing to your symptoms and it may be however I think it is important to discuss this ED visit with your railroad baggage porter. I would not recommend that you further wean yourself from the Metroprolol until you do speak with him. Return to the emergency department if you have any fainting episodes, develop sudden severe chest pain, shortness of air or have any other emergent concerns.
[2022-09-30 14:49] VITALS: BP 120/75
== END 2022-09-30 14:50 | disposition home or self-care (01) ==
LOC: ED 11:13
DX: R55 Syncope and collapse (principal)
CPT/HCPCS: 36415; 80053; 83690; 84484; 85025; 93005; 99284

== ENCOUNTER 2023-02-18 09:45 | Outpatient (CLI) | payer OTHER ==
[2023-02-18 10:47] VITALS: BP 140/90
--- NOTE | 2023-02-18 10:47 | SLEEP CARE CONSULTATION ---
Information from patient questionnaire entered by Sherri De La Paz. I have reviewed and concur with the information entered by Sherri De La Paz. This document represents the service I personally performed and the decisions made by me, Ansley Haro ARNP. History of Present Illness Service Date and Time: 02/18/2023 0945 Reason for Visit: New patient Chief Complaint: reports: Unrefreshed sleep, Excessive daytime sleepiness, Observed pauses in breathing, Fatigue Date of Onset: 6 MONTHS--1 YR Usual bedtime: 11 PM Time it takes to fall asleep: 20-25MIN; sometimes 45-60 minutes Snores at night: Yes Observed to quit breathing while asleep: Yes Sleeps alone due to snoring: No Number of times waking at night: 1-3 Reasons for waking at night: reports: Gasping for air, Other (UNKNOWN). denies: Choking, Snoring Toss, Turn, or Twitch while sleeping: Yes Recalls having dreams: Yes Usually gets out of bed at: 8-9 AM Feels refreshed in the morning: No Morning headache: Yes (WITH IN A FEW HRS) Sleepy or fatigued during the day: Yes Ever fallen asleep while driving: No Takes day naps: Yes (daily for about 30 minutes to few hours) Dreams during day naps: Yes Prior sleep studies: No Additional HPI information: I had the pleasure of seeing WICHO NI today regarding the possibility of him having a sleep disorder. His current complaints are excessive daytime sleepiness, fatigue, observed pauses in breathing and unrefreshed sleep. He states he has been having these episodes of waking up as he is dozing off with a jolt, gasping for air. He has also woke up from sleep gasping for air. He states he is tired all the time. He wakes up feeling tired/exhausted in the morning regularly. His has told him that he is snoring loudly. He wakes up with a dry throat and feeling groggy. He typically wakes up with slight headaches in the morning, 4-5 days a week. He takes a Tylenol and it will go away quickly. 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 Patient is and lives in [place]. Have you smoked in the past 12 months: No Alcohol use: No Caffeine use: Yes Caffeine amount and frequency: 1 PER DAY Family History Family history of sleep disordered breathing: Yes Family Hx Sleep Apnea: Father: Sleep apnea - Treated, Other: Snoring, Sleep apnea - Treated, Sleep apnea - Untreated Allergies and Home Medications Known drug allergies: No Drug allergies reviewed: Yes Home medication list reviewed: Yes Allergy and home medication list: Allergies No Known Drug Allergies Allergy (Verified 02/17/23 15:41) Medications: Zoloft 50 mg daily Propanolol, prn racing heart with anxiety Xanax 0.5 mg, prn panic attacks New med for GERD, has not started yet Review of Systems Weight gain over past 5 years: 10 Weight loss over past 5 years: 0 Cardiovascular: reports: high blood pressure (with anxiety), palpitations, chest pain Gastrointestinal: reports: heartburn Neurological: reports: headaches. denies: head trauma Psychiatric: reports: anxiety, depression Ear/Nose/Throat: reports: nasal congestion, dry mouth/throat, hoarseness. denies: injury to nose, tonsillectomy, wisdom teeth removed Endocrine: denies: thyroid disease Musculoskeletal: reports: neck pain, back pain Physical Exam Vital signs obtained and entered by: SHERRI Perez MA Blood Pressure: 140/90 (LEFT ARM; had nicotine prior to appt) Cuff size: regular Heart Rate: 108 O2 Saturation: 97 Height: 5 ft 7 in Weight: 175 lb Body Mass Index: 27.3 BMI Classification: Overweight Neck circumference: 16 Mouth and throat: narrow oropharynx Soft palate: normal Hard palate: normal Uvula: normal Uvula visualization: 25% Mallampati Class III Tongue: normal in size Tonsils: small Neck: normal w/o lymphadenopathy or thyromegaly Heart: regular rate and rhythm Lungs: clear bilaterally Impression and Plan 1. Suspected Obstructive Sleep Apnea-Hypopnea Syndrome, as suggested by a history of loud and irregular snoring, observed cessation of breath while asleep, gasping or choking in sleep, morning headache, unrefreshed sleep, cognitive impairment, and excessive daytime sleepiness. Narrow oropharynx and obesity are common predisposing factors for obstructive sleep apnea-hypopnea syndrome. I recommend proceeding to polysomnography to confirm the diagnosis and to assess severity. If the patient has significant sleep disordered breathing, a manual CPAP titration study will also be performed to find the optimal treatment pressure. I informed the patient of what the sleep studies involve and after some discussion, obtained agreement to proceed. The pathophysiology of obstructive sleep apnea-hypopnea syndrome was discussed with the patient and health risks of cardiovascular and cerebrovascular disease if not treated. Risks of drowsy driving discussed in detail and patient advised to avoid long distance driving and to truss puller helper at the first sign of drowsiness. Patient agreed to plan. * Schedule polysomnography * Avoid long distance driving or driving when feeling sleepy. * Avoid alcohol, sedative and muscle relaxant around bedtime. * Attempt to lose weight. * Review instructions provided by trained office staff on how to prepare for the sleep study. * Return for follow-up after sleep study completed. Counseling Topics: Weight loss health impact Visit Type: In Office Time Spent with Patient (minutes): 31 Provider Statement: I spent 100% of the Face to Face Visit with the patient with greater than 50% spent counseling the patient and coordination of care.
== END 2023-02-18 09:46 | disposition home or self-care (01) ==
LOC: SC 09:45
PROVIDERS: ATTEND Nurse Practitioner Family
DX: R06.83 Snoring (principal); G47.8 Other sleep disorders; R06.81 Apnea, not elsewhere classified; G47.10 Hypersomnia, unspecified; R51.9 Headache, unspecified; E66.3 Overweight; Z68.27 Body mass index [BMI] 27.0-27.9, adult
CPT/HCPCS: 99203; 99212

== ENCOUNTER 2023-04-23 14:21 | Outpatient (CLI) | payer OTHER ==
--- NOTE | 2023-04-23 14:21 | SLEEP CARE CONSULTATION ---
Information from patient questionnaire entered by Sherri De La Paz. I have reviewed and concur with the information entered by Sherri De La Paz. This document represents the service I personally performed and the decisions made by , Ansley Haro ARNP. History of Present Illness Service Date and Time: 04/23/2023 1420 Initial [place] Sleepiness Scale score: 12 (02/17/23) Current [place] Sleepiness Scale score: 16 (04/23/23) Additional HPI information: WICHO NI returns via video telehealth visit for follow up and results of the recently performed home sleep study. His HST showed an average AHI of 5.9 and cele oxygen saturation of 90%. I explained the pathophysiology behind obstructive sleep apnea. We then spent quite a bit of time discussing different treatment options. For mild obstructive sleep apnea, surgery and oral appliance are alternatives to nasal CPAP therapy but in moderate or severe cases, nasal CPAP is the most effective and reliable treatment. I reviewed the impact of weight changes on sleep apnea and strongly recommended losing weight. After some discussion, the patient opted to go with the nasal CPAP therapy. Nasal autoCPAP set at 4-15 cmH20 will be ordered with rationale explained. A manual titration study will be ordered if unable to find optimal pressure with office adjustments. I explained how CPAP machine works and what to expect when using the machine. Using CPAP every night in order to get used to it was emphasized. Patient advised to put CPAP mask on before getting into bed so as not to fall asleep without CPAP. To assist acclimation to CPAP use, it could also be used for a short time during day while reading or watching TV. The patient was instructed to call the CPAP supplier to discuss any mechanical problem that may occur. If the mask given is uncomfortable or is difficult to keep on through the night even with adjustment, contact the CPAP supplier as many will replace with another mask style if notified before 30 days. If snoring or perceives is not getting enough air or too much air from the machine, notify this office. Patient does not drink alcohol. Patient was cautioned about risks of drowsy driving until sleepiness symptoms resolve. Patient denies drowsy driving. Sleep Study - Results Type of Sleep Study: Home sleep study (COMPLETED 04/02/23) Prior sleep studies: No Polysomnography/Home Sleep Study results: Physician Impression: The quality of the study is good. The length of the study is adequate (> 240 minutes). Please also see the tabulated and graphic data. 1. Obstructive Sleep Apnea-Hypopnea (ICD-10 G47.33), mild, with an AHI of 5.9/hr and cele SaO2 of 90%. During the study, the patient had 27 apneas (27 obstructive, 0 central, 0 mixed) and 13 hypopneas. The longest episode lasted 108.0 seconds. The patient only slept supine during this study (supine AHI was 5.9 and non-supine, 0.00). Allergies and Home Medications Known drug allergies: No Drug allergies reviewed: Yes Home medication list reviewed: Yes (no changes) Allergy and home medication list: Allergies No Known Drug Allergies Allergy (Verified 04/22/23 15:00) Review of Systems Review of systems same as previous: Yes (no changes) Physical Exam Vital signs obtained and entered by: SHERRI Perez MA Blood Pressure: 148/97 (PER PT ) Height: 5 ft 7 in (PER PT) Weight: 160 lb (PER PT) Body Mass Index: 25.0 BMI Classification: Overweight Impression and Plan 1. Obstructive Sleep Apnea-Hypopnea Syndrome, mild, with lowest oxygen s aturation of 90%. Obviously this is the cause of the patients symptoms of unrefreshed sleep, and excessive daytime sleepiness. Positive pressure therapy could benefit anxiety and gastric reflux. As mentioned above, the patient will be started on nasal autoCPAP therapy with pressure set at 4-15 cmH2O. Compliance guidelines also reviewed. A copy of compliance guidelines will be given for reference at check out. * Nasal auto CPAP therapy, pressure at 4-15 cm H2O. * Attempt to lose weight. * Avoid alcohol consumption near bedtime. * Avoid supine sleep until using CPAP. * The patient is again cautioned about driving until sleepiness completely resolves. * Return one month after CPAP obtained. I will assess response to therapy and compliance at that time. Counseling Topics: Weight loss health impact Visit Type: Telehealth Video Video Type: Hien Patient Location: Home Location of Provider: Office Patient agrees and consents to this telehealth visit type: Yes Patient agrees to have their insurance billed: Yes Time Spent with Patient (minutes): 14 Provider Statement: I spent 100% of the Telehealth Video Call with the patient with greater than 50% spent counseling the patient and coordination of care.
[2023-04-23 15:00] VITALS: BP 148/97
== END 2023-04-23 14:22 | disposition home or self-care (01) ==
LOC: SC 14:21
PROVIDERS: ATTEND Nurse Practitioner Family
DX: G47.33 Obstructive sleep apnea (adult) (pediatric) (principal); E66.3 Overweight; Z68.25 Body mass index [BMI] 25.0-25.9, adult